=== PATIENT | female | born 1960 | race Caucasian/White ===

== ENCOUNTER 2018-01-29 13:24 | Inpatient (IN) ==
[2018-01-29] MEDS ORDERED: Albuterol 2.5 MG/3 ML NEBULIZER IH ONE (13:44)
[2018-01-29] MEDS ORDERED: CeFAZolin Syr 2,000MG/20 ML 2,000 MG/20 ML SYRINGE IVPB ONE (13:44)
[2018-01-29] MEDS ORDERED: Ringers Solution, Lactated 1,000 ML IVC SCH ×2 (13:45→18:54)
--- NOTE | 2018-01-29 14:25 | Anesthesia Evaluation PreOp ---
Date of Encounter: 01/29/18 Time of Encounter: 14:23 - Past History Planned Operation: R robotic total knee arthroplasty Cardiac History: Denies any Significant Hx Pulmonary History: Denies Any Significant HX SYSTEM SUPPORT ADMINISTRATOR History: Other (anxiety) Other Medical History: Diabetes Type II, Other (BMI 41) Anesthesia History: No Prior Anesthetic Complications, Past Anesthesia ( hysterectomy, franc) Alcohol Use: none Drug use: none Medications and Allergies Amlodipine/Valsartan/Hcthiazid [Exforge Hct 5-160-12.5 mg Tab] 1 each PO DAILY 01/29/18 [History] Atorvastatin Calcium [Lipitor] 10 mg PO DAILY 01/29/18 [History] Diclofenac Sodium [Voltaren] 100 gm TP TID 01/29/18 [History] Levothyroxine Sodium [Levoxyl] 125 mcg PO DAILY 01/29/18 [History] Liraglutide [Victoza 2-Ry] 18 mg SQ DAILY 01/29/18 [History] Losartan Potassium [Cozaar] 50 mg PO DAILY 01/29/18 [History] Metformin HCl [Fortamet] 500 mg PO BID 01/29/18 [History] Omeprazole [PriLOSEC] 10 mg PO DAILY 01/29/18 [History] Tramadol HCl [Ultram] 50 mg PO QID PRN 01/29/18 [History] hydroCHLOROthiazide [Hydrochlorothiazide] 12.5 mg PO DAILY 01/29/18 [History] 3 Allergy/AdvReac Type Severity Reaction Status Date / Time Sulfa (Sulfonamide Allergy Swelling Verified 01/19/18 11:58 Antibiotics) of Lip/Tongue/Throat - Meds/Allergy Pre-op Review Medications Reviewed: Yes Allergies Reviewed: Yes Beta Blockers on Current Med List: No Anesthesia Results - Labs Laboratory Tests 01/19/18 01/19/18 01/19/18 12:10 12:10 12:10 WBC 7.5 Hgb 12.8 Hct 38.4 Plt Count 235 PT 13.1 H INR 1.2 APTT 33.6 Sodium 136 Potassium 3.8 Chloride 101 Carbon Dioxide 29 BUN 13 Creatinine 0.74 Est Mean Plasma Glucose Hemoglobin A1c 01/19/18 12:10 WBC Hgb Hct Plt Count PT INR APTT Sodium Potassium Chloride Carbon Dioxide BUN Creatinine Est Mean Plasma Glucose 140 Hemoglobin A1c 6.5 H Anesthesia Exam O2 Sat Height 1.65 m Height 1.65 m Height 1.65 m Weight 113.398 kg Weight 113.398 kg Weight 113.398 kg O2 Sat by Pulse Oximetry 96 Vital Signs Temp Pulse Resp BP Pulse Ox 99.0 F 81 18 142/71 96 01/29/18 13:43 01/29/18 13:43 01/29/18 13:43 01/29/18 13:43 01/29/18 13:43 Blood glucose: 108 Height: 65" Weight: 243lbs NPO (# of Hours): >8 - HEENT Pupil (Motor): Pupils equal, EOMI Mallampati: III Teeth: Edentulous Oral Opening: Greater than 3 - SYSTEM SUPPORT ADMINISTRATOR LOC: Oriented SYSTEM SUPPORT ADMINISTRATOR Motor: Normal RUE, Normal LUE, Normal RLE, Normal LLE, Normal Face SYSTEM SUPPORT ADMINISTRATOR Sensory: Normal: RUE, LUE, RLE, LLE, Face - Cardiac Rhythm: Regular - Pulmonary Breath Sounds: bilateral Clear Respiratory Effort: Symmetrical Anesthesia Assess/Plan ASA Score: 3 Modified [place] Scale for Level of Consciousness: Cooperative, oriented, and tranquil Anesthetic Plan: General (plan b), Regional (spinal with adductor canal nn block ), MAC Monitoring Plan: Standard Monitors Recovery Plan: PACU
[2018-01-29] MEDS ORDERED: Ondansetron 4 MG/2 ML VIAL ONE ×2 (14:39→15:19)
[2018-01-29] MEDS ORDERED: Acetaminophen IV 1,000 MG/100 ML INFUS..BTL ONE (14:40)
--- NOTE | 2018-01-29 15:10 | History & Physical Report ---
Date of Encounter: 01/29/18 Time of Encounter: 15:10 24 Hour HP Update - Instructions Instructions: If the History and Physical is less than 30 days old and was completed prior to A.M. admission and or procedure and has NOT been updated on calendar day of procedure please complete this update prior to performing procedure. - Update Patient reports changes in Medical Condition: No Changes in examination, assessment, or condition: No Changes in Medication: No Preop tests/diagnostics Reviewed: Yes Surgery Remains Indicated: Yes Consent for Planned Operative Procedure(s) Verified: Yes - Pre-Operative Checklist Preoperative Checklist Indicated: No Prophylactic Antibiotic Ordered: Yes Is VTE Prophylaxis Indicated?: Yes
--- NOTE | 2018-01-29 15:12 | Discharge Summary ---
Date of Encounter: 02/02/18 Time of Encounter: 06:57 - Discharge Diagnosis (1) Type 2 diabetes mellitus Priority: Secondary Status: Chronic Qualifiers: Diabetes mellitus prison insulin use: unspecified family mediator insulin use status Diabetes mellitus complication status: with unspecified complications Qualified Code(s): E11.8 - Type 2 diabetes mellitus with unspecified complications (2) Morbid obesity with BMI of 40.0-44.9, adult Priority: Secondary Status: Chronic (3) Arthritis of right knee Priority: Primary Status: Chronic (4) Status post total right knee replacement Priority: Primary Status: Acute (5) Acute blood loss anemia Priority: Primary Status: Acute - Hospital Course Hospital course: Ms. Murray is a 57 year old female Status post total knee replacement The patient had an uneventful postoperative course. They received antibiotics and physical therapy and were discharged in stable condition. There will follow -up in the office in 2 weeks. - Time Spent with Patient Total time spent providing and/or coordinating discharge services: - Discharge Medications Home Medications: Aspirin Enteric Coated [Aspirin EC] 325 mg PO BID #20 tablet. 01/29/18 [Rx] Diclofenac Sodium [Voltaren] 1 appl TP TID 01/29/18 [History] Levothyroxine Sodium [Levoxyl] 125 mcg PO DAILY 01/29/18 [History] Liraglutide [Victoza 2-Ry] 1.8 mg SQ DAILY 01/29/18 [History] Losartan Potassium [Cozaar] 50 mg PO DAILY 01/29/18 [History] Metformin HCl [Fortamet] 500 mg PO BID 01/29/18 [History] OxyCODONE Immed Rel [Roxicodone 5 MG] 5 mg PO Q4HR PRN 5 Days #20 tablet [Rx] Tramadol HCl [Ultram] 50 mg PO QID PRN 01/29/18 [History] hydroCHLOROthiazide [Hydrochlorothiazide] 12.5 mg PO DAILY 01/29/18 [History] Atorvastatin [Lipitor] 10 mg PO DAILY 01/30/18 [History] Bifidobacterium Infantis [Align] 4 mg PO DAILY 01/30/18 [History] Escitalopram [Lexapro] 10 mg PO DAILY 01/30/18 [History] Omeprazole [PriLOSEC] 40 mg PO DAILY 01/30/18 [History] Tizanidine HCl 4 mg PO DAILY PRN 01/30/18 [History] Allergies/Adverse Reactions: 3 Allergy/AdvReac Type Severity Reaction Status Date / Time Sulfa (Sulfonamide Allergy Swelling Verified 01/19/18 11:58 Antibiotics) of Lip/Tongue/Throat Primary care physician: Stefania Cox MD Labs on day of discharge: Labs from last 24 hours 01/29/18 13:41 POC Glucose 108 H - Patient Status Disposition: Home, Self-Care - Discharge Instructions Follow Up With: Robb Madrid MD [Partnered Physician] - 02/24/18 5:35 pm Tameka Zazueta PAC [Physician Hand Candy Molder] - 02/04/18 8:45 am (Second followup: 02/12/18 @ 10am) Additional Instructions: Discharge Instructions: Total Knee Replacement Please call [facility] ([phone]), your Primary Care Physician, or report to the Emergency Room if you have any of the following symptoms: Nausea, vomiting, fever greater that 101.5, swelling, chest pain, shortness of breath, increased pain/redness/drainage/odor for your incision site, numbness/ tingling, or any other concerning symptoms. ACTIVITY:Weight-bearing as tolerated. You may progress off support (crutches or walker) as tolerated. Incentive Spirometer 10 times an hour. MEDICATIONS: Upon discharge resume your home medications. Take all the medications as prescribed. Take a stool softener if taking narcotic pain medications. Stool softeners are only effective if you drink enough fluids. Drink 6-8 glass of water or fluids a day, unless this is not allowed for another health problem. Despite using stool softeners, if you haven't had a bowel movement in 3 days, please switch to a gentle laxative. Gentle laxatives are sold over the counter. You should have a bowel movement within 24 hours, if not call the office. You will be discharged from the hospital with a prescription for pain medication. You are encouraged to decrease the use of narcotic pain medication as tolerated. Should you require a refill, please call the office. [facility] prescribes narcotic pain medication for only 4-6 weeks after surgery. If you require pain medication beyond this time period, you may be referred to your Primary Care Physician or to the Pain Clinic for further evaluation. Plan ahead for refills on pain medication as many narcotics either need to be picked up at the office or mailed. It is best to call 48-72 hours in advance of needing a prescription refill so you don't run out of medication. To help control the post-operative pain, you may take NSAIDs (Aleve,Advil, Motrin, Ibuprofen, Naprosyn) or Tylenol as prescribed on the bottle in addition to the pain medication. ANTICOAGULATION (blood thinners): Continue your Aspirin, Lovenox or Coumadin as prescribed to help prevent a blood clot in the leg or in the lungs. As long as your incision remains dry and you tolerate the NSAIDs (Aleve, Advil, Motrin, ibuprofen, naprosyn), it is OK to use the NSAIDS while you are taking your anticoagulation medication. Should your incision start to drain, stop the NSAID and contact our office. Common symptoms of blood clot in the legs include: localized pain, swelling, calf tenderness, redness or discoloration of the skin. Blood clot in the lung symptoms include: shortness of breath, rapid pulse, sweating, and chest pain that worsens with deep breathing, coughing up blood, lightheadedness, feelings of anxiety. If you experience any of these symptoms notify your physician immediately, go to the emergency room, or if having trouble breathing, call 911. WOUND CARE: Leave the dressing on for 7 to 10days. You may change the dressing if it becomes saturated greater than 50%. Do not get the dressing wet at anytime. Wash your hands with antibacterial soap, rinse and dry prior to any wound care. If you have patti the visiting nurse or rehab facility can remove the stapes 10-14 days after surgery and place steri-strips across the wound. Leave the steri-strips in place until they fall off on their won. You may let water from the shower run on top of the steri-strips. If you do not have a visiting nurse or rehab facility, you will need to return to the office at 10-14 days for the patti to be removed. If you have itching or redness around the dressing call the office. FOLLOW-UP: Please follow up with your surgeon in the orthopedic clinic in 4 weeks from the day of surgery. If you have patti that need to be removed, you will need to come back to the office in 10-14 days from the day of surgery.
[2018-01-29] MEDS ORDERED: Lidocaine -MPF 2% 2 ML VIAL ONE ×2 (15:19→15:55)
[2018-01-29] MEDS ORDERED: *HR* Midazolam HCl 2 MG/2 ML VIAL ONE (15:19)
[2018-01-29] MEDS ORDERED: *HR* FentaNYL (PF) 100 MCG/2 ML VIAL ONE (15:19)
[2018-01-29] MEDS ORDERED: Morphine Sulfate/PF 5mg/10mL Vial ONE (15:21)
[2018-01-29] MEDS ORDERED: Ethanol\\Acetic Acid\\Na Ace\\Ben 1,000 ML IRRIG.SOLN IR ONE (15:22)
[2018-01-29] MEDS ORDERED: ROPIVACAINE HCL/PF 0.5% 30 ML VIAL ONE (15:44)
[2018-01-29] MEDS ORDERED: Propofol 500 MG/50 ML INFUS..BTL ONE (15:55)
--- NOTE | 2018-01-29 16:01 | Anesthesia Procedures ---
Date of Encounter: 01/29/18 Time of Encounter: 15:40 Procedures: Anesthesia - Epidural/Spinal Patient ID/Chart reviewed: Yes Patient examined: Yes Supplemental Oxygen: Nasal Cannula Supplemental Oxygen Rate (L/min): 2 Sedation: Versed (mg): 2 Sedation: Fentanyl (mcg): 100 Site Prep: 0.5% Chlorhexidine/Alcohol Patient position: upright Local Anesthetic: Lidocaine 1% Amount of Local Anesthetic used: 3 Interspace Used: L3-L4 Blood: No CSF: Yes Paresthesia: No Spinal Needle Gauge: 24 Spinal Dose: 0.5% bupivacaine 3 ml, 150 mcg duramorph Procedure: robotic right total knee - Nerve Block Procedure Date: 01/29/18 Time: 15:55 Checklist: Correct Patient Identifier, Correct procedure, History checked Correct side: Right Blood Thinner: No Monitor Applied: EKG, BP, Pulse Oximetry Supplemental Oxygen via Nasal Cannula (L/min): 2 Indication: Post Op Analgesia Block Type: Other (adductor canal) Catheter placed: No Sterile Technique: Yes Ultrasound used: Yes Anatomy identified: Yes Visual spread of Local: Yes Neuro Stimulation: No Blood on Needle Aspiration: No Smooth Injection of Local: Yes Pain with Injection of Local: No Prep: Chlorhexadine Local: Ropivacaine (0.5% 30 ml) Volume (cc): 30 Number of Attempts: 1 Complications: None/effective block Vitals: O2 Sat Height 1.65 m Height 1.65 m Height 1.65 m Weight 113.398 kg Weight 113.398 kg Weight 113.398 kg O2 Sat by Pulse Oximetry 98 O2 Sat by Pulse Oximetry 99 O2 Sat by Pulse Oximetry 98 O2 Sat by Pulse Oximetry 98 O2 Sat by Pulse Oximetry 94 O2 Sat by Pulse Oximetry 96 Vital Signs Temp Pulse Resp BP Pulse Ox 99.0 F 81 18 142/71 96 01/29/18 13:43 01/29/18 13:43 01/29/18 13:43 01/29/18 13:43 01/29/18 13:43
[2018-01-29] MEDS ORDERED: *HR* Propofol 200 MG/20 ML VIAL IVP ONE (16:20)
[2018-01-29] MEDS ORDERED: Dexamethasone 4 MG/ML VIAL ONE (16:59)
[2018-01-29] MEDS ORDERED: *HR* PHENYLEPHRINE 1,000 MCG/10 ML SYRINGE IVP ONE (17:22)
--- NOTE | 2018-01-29 17:37 | Physician Discharge Referral ---
Home Health/Hosp Referral Info Transfer to: Home Health Attending Provider: Julius - Diagnosis (1) Status post total right knee replacement Priority: Primary Status: Acute (2) Arthritis of right knee Priority: Secondary Status: Chronic (3) Morbid obesity with BMI of 40.0-44.9, adult Priority: Secondary Status: Chronic (4) Type 2 diabetes mellitus Priority: Secondary Status: Chronic - Respiratory Orders Smoking Cessation: Smoking cessation has been advised. For more information, call the [place] Tobacco Quit Line at 6-423-ETZN-NOW. - Diet/Nutrition Diet/Nutrition Orders: Regular - Activity Activity Orders: Up ad betsey, Ambulate, Chair - Services Needed Following services are medically necessary services: Physical Therapy, Occupational Therapy Home Care Orders: Opsite dressing, leave intact until first post-operative visit. If dressing becomes >50% saturated, contact office, remove dressing and place appropriate dressing in its place. Do not allow for dressing to get wet. Zipline/[place] in place, plan to remove at post-operative day #14-16. Total Joint Precautions x 6 weeks Apply cold therapy wrap 3-6x/day for 20 minutes at a time. Encourage ambulation throughout the day Use Incentive spirometer 10x/hour. Elevate affected extremity above heart as tolerated. Brace: Wear knee immobilizer at night x 2 weeks. - Transfer Medications Prescriptions: OxyCODONE Immed Rel [Roxicodone 5 MG] 5 mg PO Q4HR PRN 5 Days #20 tablet PRN Reason: Pain Aspirin Enteric Coated [Aspirin EC] 325 mg PO BID #20 tablet. Home Medications: Amlodipine/Valsartan/Hcthiazid [Exforge Hct 5-160-12.5 mg Tab] 1 each PO DAILY 01/29/18 [History] Aspirin Enteric Coated [Aspirin EC] 325 mg PO BID #20 tablet. 01/29/18 [Rx] Atorvastatin Calcium [Lipitor] 10 mg PO DAILY 01/29/18 [History] Diclofenac Sodium [Voltaren] 100 gm TP TID 01/29/18 [History] Levothyroxine Sodium [Levoxyl] 125 mcg PO DAILY 01/29/18 [History] Liraglutide [Victoza 2-Ry] 18 mg SQ DAILY 01/29/18 [History] Losartan Potassium [Cozaar] 50 mg PO DAILY 01/29/18 [History] Metformin HCl [Fortamet] 500 mg PO BID 01/29/18 [History] Omeprazole [PriLOSEC] 10 mg PO DAILY 01/29/18 [History] OxyCODONE Immed Rel [Roxicodone 5 MG] 5 mg PO Q4HR PRN 5 Days #20 tablet [Rx] Tramadol HCl [Ultram] 50 mg PO QID PRN 01/29/18 [History] hydroCHLOROthiazide [Hydrochlorothiazide] 12.5 mg PO DAILY 01/29/18 [History] Allergies/Adverse Reactions: 3 Allergy/AdvReac Type Severity Reaction Status Date / Time Sulfa (Sulfonamide Allergy Swelling Verified 01/19/18 11:58 Antibiotics) of Lip/Tongue/Throat Certification: Further, I certify that my clinical findings support that this patient is homebound (i.e. absences from home require considerable and taxing effort and are for medical reasons or zoroastrian services or infrequently or short duration when for other reasons) because: Homebound Reason: Post-surgery restriction and or conditions limit ability to leave home Attestation: My signature below is to certify that this patient is under my care and that I, or nurse practitioner, or a physician assistant fitness manager working with me, has a face-to- face encounter with this patient.
--- NOTE | 2018-01-29 17:38 | Physician Discharge Referral ---
ExtendedCare Referral Info Transfer To: [facility] Provider in Charge: Madrid - Diagnosis (1) Status post total right knee replacement Priority: Primary Status: Acute (2) Arthritis of right knee Priority: Secondary Status: Chronic (3) Morbid obesity with BMI of 40.0-44.9, adult Priority: Secondary Status: Chronic (4) Type 2 diabetes mellitus Priority: Secondary Status: Chronic Expected Duration of Placement: <30 days Prognosis: Good Aware of Diagnosis: Patient Aware of Prognosis: Patient - Transfer Medications Prescriptions: OxyCODONE Immed Rel [Roxicodone 5 MG] 5 mg PO Q4HR PRN 5 Days #20 tablet PRN Reason: Pain Aspirin Enteric Coated [Aspirin EC] 325 mg PO BID #20 tablet. Home Medications: Amlodipine/Valsartan/Hcthiazid [Exforge Hct 5-160-12.5 mg Tab] 1 each PO DAILY 01/29/18 [History] Aspirin Enteric Coated [Aspirin EC] 325 mg PO BID #20 tablet. 01/29/18 [Rx] Atorvastatin Calcium [Lipitor] 10 mg PO DAILY 01/29/18 [History] Diclofenac Sodium [Voltaren] 100 gm TP TID 01/29/18 [History] Levothyroxine Sodium [Levoxyl] 125 mcg PO DAILY 01/29/18 [History] Liraglutide [Victoza 2-Ry] 18 mg SQ DAILY 01/29/18 [History] Losartan Potassium [Cozaar] 50 mg PO DAILY 01/29/18 [History] Metformin HCl [Fortamet] 500 mg PO BID 01/29/18 [History] Omeprazole [PriLOSEC] 10 mg PO DAILY 01/29/18 [History] OxyCODONE Immed Rel [Roxicodone 5 MG] 5 mg PO Q4HR PRN 5 Days #20 tablet [Rx] Tramadol HCl [Ultram] 50 mg PO QID PRN 01/29/18 [History] hydroCHLOROthiazide [Hydrochlorothiazide] 12.5 mg PO DAILY 01/29/18 [History] Allergies/Adverse Reactions: 3 Allergy/AdvReac Type Severity Reaction Status Date / Time Sulfa (Sulfonamide Allergy Swelling Verified 01/19/18 11:58 Antibiotics) of Lip/Tongue/Throat - Respiratory Orders Smoking Cessation: Smoking cessation has been advised. For more information, call the [place] Tobacco Quit Line at 5-935-IWLV-NOW. - Ancillary Orders May use pressure relief devices daily prn, May go on MAXIMO w/family/respon alliance party w /meds at nurse discretion PRN, May consult with Dentist, Fisher Dip Net, Room Service Server PRN - Mobility Orders Chair, Ambulate - Rehabiliation Orders Rehab Potential: Good Rehab Orders: Evaluation for Physical Therapy, Evaluation for Occupational Therapy Other: Opsite dressing, leave intact until first post-operative visit. If dressing becomes >50% saturated, contact office, remove dressing and place appropriate dressing in its place. Do not allow for dressing to get wet. Zipline/Robert in place, plan to remove at post-operative day #14-16. Total Joint Precautions x 6 weeks Apply cold therapy wrap 3-6x/day for 20 minutes at a time. Encourage ambulation throughout the day Use Incentive spirometer 10x/hour. Elevate affected extremity above heart as tolerated. Brace: Wear knee immobilizer at night x 2 weeks.~ - Treatments Skin tear care topically daily PRN per policy - Diet Orders Regular CERTIFICATION: I certify that the transfer of the above named patient to an Extended Care Facility is necessary for the continuing treatment of the diagnosis listed. The above information is true and accurate reflection of patient's current condition. Confidential - Redisclosure prohibited without a patient's written consent.
--- NOTE | 2018-01-29 17:41 | Orthopedic Operative Note ---
Date of procedure: 01/29/18 Pre-op diagnosis: Right knee arthritis Post-op diagnosis: same Procedure: Procedure: Right robotic-assisted Total knee replacement Estimated blood loss: 200 cc Hardware: Metal and polyethylene replacement. [place] Femur: 3 Tibia: 3 TS insert: 11 Patella: 36 Exam Under anesthesia: 1 degree hyperextension 5 degree varus as calculated by the robot full flexion and no instability Procedural Notes: Grade 3 arthritic changes all 3 compartments. Operative procedure: The patient was brought to the operating room and placed on the operating room table. After general anesthesia was administered the operative knee was examined. Findings were noted in the exam under anesthesia. The operative extremity was prepped and draped in sterile surgical fashion. The patient received IV antibiotics prior to skin incision. A standard midline incision was made centered over the patella. The incision was made through the skin and subcutaneous tissue. A medial parapatellar tendon approach was performed. Care was taken to preserve tissue along the medial aspect of the patella. And to protect the patella tendon. The deep MCL was released off the medial tibia. The infra patella fat pad was excised. The patella was everted and cut was made at the level of the insertion of the quadriceps and patella tendon. The patella was sized to a 36 the guide was seated and the lug holes are drilled. Knee was brought into flexion. Patient noted to have rate 3 arthritic changes all 3 compartments. Steinmann pins were placed in the tibia and the femur for the tibial and femoral arrays respectively. Checkpoints were also placed in the tibia and the femur for calculation purposes. The knee including the femur and the tibial registered. Osteophytes, ACL and PCL were excised at this point. Extension and flexion were assessed with a valgus stress components were adjusted on the computer to balance the knee. Femoral cuts were made first with robotic assistance, these included the anterior cut posterior cuts chamfer cuts. Tibial cut was then performed with robotic assistance as well. Bone fragments were removed, as well as the medial and lateral meniscus. The size 3 femoral guide was seated box cut was made lug holes are drilled. The size 3 tibial tray was seated and prepared with the fin cutter. Trial reduction with the 11 TS Zee revealed extension of 0 degree and 2 degrees varus full flexion. No varus valgus instability. Trial reduction revealed excellent patella tracking. All trial components were removed all bony surfaces were irrigated. The Tibia was seated followed by the femur, The Zee size 11 was seated and secured patella. Patient had similar findings for motion and stability. The knee was then irrigated out with 2 L of pulse irrigation. The extensor mechanism was closed with #2 FiberWire suture and #2 PDS suture. The subcutaneous tissue was then irrigated and closed deep with #1 PDS suture superficially with 0 PDS suture and skin was closed with patti zip tie The patient was then placed in a sterile dressing and a postoperative brace extubated and transferred to recovery room in stable condition. Anesthesia: spinal Surgeon: Robb Madrid Was there an contact lens assistant present: No Estimated blood loss (cc): 200 Condition: stable Disposition: PACU
[2018-01-29] MEDS ORDERED: *HR* Enoxaparin 30 MG/0.3 ML SYRINGE SQ SCH (18:00)
--- NOTE | 2018-01-29 18:19 | Anesthesia Evaluation Post Op ---
Date of Encounter: 01/29/18 Time of Encounter: 18:19 - Discharge PostOp Status: Transfer Patient to floor (Patient's vital signs have been reviewed. Patient is stable postoperatively and has adequately recovered from anesthesia. Patient is determined to have stable airway patency and respiratory function including respiratory rate and oxygen saturation. Patient has a stable heart rate, blood pressure and adequate hydration. Patients mental status is acceptable. Patients temperature is appropriate. Pain and nausea are adequately controlled.)
[2018-01-29 18:43] LABS: Hematocrit 32.9 % (35.3-44.9); Hemoglobin 10.7 g/dL (11.5-15.4)
[2018-01-29] MEDS ORDERED: Ondansetron 4 MG/2 ML VIAL IVP PRN (18:54)
[2018-01-29] MEDS ORDERED: *HR* Dextrose 50 % in Water (Syg) 50 ML SYRINGE IVP PRN (18:54)
[2018-01-29] MEDS ORDERED: D5% in Water 1,000 ML IVC PRN (18:54)
[2018-01-29] MEDS ORDERED: Dextrose Gel 15 GM/37.5 ML TUBE PO PRN ×2 (18:54)
[2018-01-29] MEDS ORDERED: Naloxone 0.4 MG/ML INJ IVP PRN (18:54)
[2018-01-29] MEDS ORDERED: Sennosides 8.6 MG TABLET PO PRN (18:54)
[2018-01-29] MEDS ORDERED: MOM Conc 10 ML UD.LIQ PO PRN (18:54)
[2018-01-29] MEDS: Insulin LISPRO 300 UNITS/3 ML VIAL SQ SCH ×2 (20:09→20:18)
[2018-01-29] MEDS: *HR* OxyCODONE/APAP 5/325 TABLET PO PRN (20:18)
[2018-01-29] MEDS: traMADol 50 MG TABLET PO PRN (23:40)
[2018-01-30 01:00] LABS: Hematocrit 33.5 % (35.3-44.9); Hemoglobin 10.7 g/dL (11.5-15.4)
[2018-01-30 01:18] LABS: BUN/Creatinine Ratio 18 (6-26); Blood Urea Nitrogen 16 mg/dL (6-20); Calcium 8.7 mg/dL (8.6-10.3); Carbon Dioxide 30 mEq/L (23-29); Chloride 99 mEq/L (98-107); Glucose 180 mg/dL (70-105); Osmolality,Calculated 280 (280-300); Potassium 4.4 mEq/L (3.5-5.1); Sodium 132 mEq/L (136-145); eGFR For Non-African Americans > 60 (> 60)
[2018-01-30] MEDS: *HR* OxyCODONE Immed Rel 5 MG TABLET PO PRN ×5 (02:15→18:34)
[2018-01-30] MEDS: *HR* Enoxaparin 30 MG/0.3 ML SYRINGE SQ SCH ×2 (05:18→16:33)
[2018-01-30] MEDS: Insulin LISPRO 300 UNITS/3 ML VIAL SQ SCH ×4 (07:36→21:56)
[2018-01-30] MEDS: amLODIPine 5 MG TABLET PO SCH (07:37)
[2018-01-30] MEDS: *HR* Metformin 500 MG TABLET PO SCH ×2 (07:37→16:33)
[2018-01-30] MEDS: LIRAGLUTIDE 18 MG SQ SCH (07:38)
[2018-01-30] MEDS: hydroCHLOROthiazide 25 MG TABLET PO SCH (07:38)
[2018-01-30] MEDS ORDERED: AMLODIPINE PO SCH (09:00)
[2018-01-30] MEDS ORDERED: VALSARTAN PO SCH (09:00)
[2018-01-30] MEDS ORDERED: [UNRECOGNIZED DRUG - OTHER] PO SCH (09:00)
[2018-01-30] MEDS ORDERED: HCTHIAZID PO SCH (09:00)
--- NOTE | 2018-01-30 13:15 | Orthopedics Progress Note ---
Date of Encounter: 01/30/18 Time of Encounter: 13:13 Subjective Interval history: No overnight issues. Pain tolerable AFVSS Hg 10.7 RLE: DNVI Dressing clean dry and intact Calves nontender A/P: s/p R TKA Ambulate with PT PO pain control Discharge planning - likely d/c tomorrow Objective Vital signs: Vital Signs Temp Pulse Resp BP Pulse Ox 01/30/18 11:21 98 F 68 16 94/47 94 01/30/18 07:07 98.4 F 76 16 113/65 95 01/30/18 03:23 98.1 F 72 18 143/62 96 01/29/18 23:08 98.9 F 79 18 118/69 95 01/29/18 21:30 98.4 F 76 18 134/74 97 01/29/18 21:00 99.3 F 85 16 133/82 96 01/29/18 20:30 73 17 127/77 97 01/29/18 20:00 98.4 F 70 17 139/73 98 01/29/18 18:18 97.7 F 69 16 118/51 97 01/29/18 18:08 63 16 109/46 97 01/29/18 17:58 71 16 102/44 96 01/29/18 17:48 97.6 F 87 16 98/47 94 01/29/18 16:39 70 15 104/46 98 01/29/18 16:28 75 15 121/55 96 01/29/18 16:23 77 15 98/51 97 01/29/18 16:18 76 15 129/64 99 01/29/18 16:08 74 15 120/56 98 01/29/18 16:04 79 16 119/55 98 01/29/18 16:02 83 15 128/57 99 01/29/18 16:00 79 15 108/77 98 01/29/18 15:56 82 15 127/54 99 01/29/18 15:49 86 15 134/59 98 01/29/18 15:43 94 16 144/71 98 01/29/18 15:34 93 16 144/71 94 01/29/18 13:43 99.0 F 81 18 142/71 96 Intake and Output 01/29/18 01/30/18 01/30/18 23:59 07:59 15:59 Intake Total 20 / 20 100 / 100 Output Total 550 / 550 200 / 200 Balance -530 / -530 -100 / -100 Intake: IV Fluids 20 / 20 100 / 100 Ancef Syringe 2,000 MG/20 ML 2, 20 / 20 000 mg In 20 ml @ 200 mls/hr IVPB PREOP ONE Rx#:[id number] Ancef 2,000 MG In 0.9 % Sodium 100 / 100 Chloride 100 ML @ 200 mls/hr IVPB Q8HR SHIRLEY Rx#:[id number] Output: Urine 350 / 350 200 / 200 Estimated Blood Loss 200 / 200 Other: # Voids 1 Blood Glucose* 134 142 149 - Labs CBC & BMP: 01/30/18 00:50 01/30/18 00:50 Labs: Abnormal lab results Hgb 10.7 g/dL (11.5-15.4) L 01/30/18 00:50 Hct 33.5 % (35.3-44.9) L 01/30/18 00:50 Sodium 132 mEq/L (136-145) L 01/30/18 00:50 Carbon Dioxide 30 mEq/L (23-29) H 01/30/18 00:50 Glucose 180 mg/dL (70-105) H 01/30/18 00:50 POC Glucose 134 mg/dL (70-99) H 01/29/18 19:18 - VTE Documentation of Mechanical Device: Venous foot pump, device Consult Discharge Plan - Plan Referrals: Stefania Cox MD [Primary Care Provider] -
[2018-01-30] MEDS: traMADol 50 MG TABLET PO PRN (16:33)
[2018-01-30] MEDS ORDERED: Ketorolac 30 MG/ML VIAL IVP PRN (20:22)
[2018-01-30] MEDS ORDERED: Acetaminophen IV 1,000 MG/100 ML INFUS..BTL IVPB PRN (20:23)
[2018-01-30] MEDS: Temazepam 15 MG CAPSULE PO PRN (22:00)
[2018-01-31 01:29] LABS: Hematocrit 28.8 % (35.3-44.9); Hemoglobin 9.3 g/dL (11.5-15.4)
[2018-01-31 01:49] LABS: BUN/Creatinine Ratio 27 (6-26); Blood Urea Nitrogen 21 mg/dL (6-20); Calcium 8.7 mg/dL (8.6-10.3); Carbon Dioxide 33 mEq/L (23-29); Chloride 97 mEq/L (98-107); Glucose 152 mg/dL (70-105); Osmolality,Calculated 282 (280-300); Potassium 4.2 mEq/L (3.5-5.1); Sodium 133 mEq/L (136-145); eGFR For Non-African Americans > 60 (> 60)
[2018-01-31] MEDS: *HR* OxyCODONE Immed Rel 5 MG TABLET PO PRN ×4 (02:38→20:50)
[2018-01-31] MEDS: *HR* Enoxaparin 30 MG/0.3 ML SYRINGE SQ SCH ×2 (05:49→17:36)
--- NOTE | 2018-01-31 09:07 | Orthopedics Progress Note ---
Date of Encounter: 01/31/18 Time of Encounter: 09:06 Subjective Interval history: No overnight issues. Pain tolerable AFVSS Hg 9.3 RLE: DNVI Dressing clean dry and intact Calves nontender A/P: s/p R TKA Ambulate with PT PO pain control Discharge planning - d/c today Objective Vital signs: Vital Signs Temp Pulse Resp BP Pulse Ox 01/31/18 07:21 97.5 F L 65 16 115/71 94 01/30/18 23:14 97.9 F 73 16 124/54 93 01/30/18 19:14 98.5 F 66 16 128/55 95 01/30/18 16:46 98.2 F 87 16 130/64 94 01/30/18 11:21 98 F 68 16 94/47 94 Intake and Output 01/30/18 01/31/18 01/31/18 23:59 07:59 15:59 Intake Total 200 / 200 Balance 200 / 200 Intake: Oral 200 / 200 Other: # Voids 1 Blood Glucose* 159 - Labs CBC & BMP: 01/31/18 01:05 01/31/18 01:05 Labs: Abnormal lab results Hgb 9.3 g/dL (11.5-15.4) L 01/31/18 01:05 Hct 28.8 % (35.3-44.9) L 01/31/18 01:05 Sodium 133 mEq/L (136-145) L 01/31/18 01:05 Chloride 97 mEq/L (98-107) L 01/31/18 01:05 Carbon Dioxide 33 mEq/L (23-29) H 01/31/18 01:05 BUN 21 mg/dL (6-20) H 01/31/18 01:05 BUN/Creatinine Ratio 27 (6-26) H 01/31/18 01:05 Glucose 152 mg/dL (70-105) H 01/31/18 01:05 POC Glucose 159 mg/dL (70-99) H 01/30/18 20:21 - VTE Documentation of Mechanical Device: Venous foot pump, device Consult Discharge Plan - Plan Referrals: Stefania Cox MD [Primary Care Provider] -
[2018-01-31] MEDS: hydroCHLOROthiazide 25 MG TABLET PO SCH (09:42)
[2018-01-31] MEDS: LIRAGLUTIDE 18 MG SQ SCH (09:43)
[2018-01-31] MEDS: amLODIPine 5 MG TABLET PO SCH (09:43)
[2018-01-31] MEDS: Insulin LISPRO 300 UNITS/3 ML VIAL SQ SCH ×4 (09:44→20:50)
[2018-01-31] MEDS: *HR* Metformin 500 MG TABLET PO SCH ×2 (09:44→17:36)
[2018-01-31] MEDS: Temazepam 15 MG CAPSULE PO PRN (23:23)
[2018-02-01] MEDS: *HR* Enoxaparin 30 MG/0.3 ML SYRINGE SQ SCH (06:28)
[2018-02-01] MEDS: *HR* OxyCODONE/APAP 5/325 TABLET PO PRN (06:30)
[2018-02-01 07:44] VITALS: BP 138/59
[2018-02-01] MEDS: Insulin LISPRO 300 UNITS/3 ML VIAL SQ SCH (07:51)
[2018-02-01] MEDS: amLODIPine 5 MG TABLET PO SCH (08:56)
[2018-02-01] MEDS: hydroCHLOROthiazide 25 MG TABLET PO SCH (08:56)
[2018-02-01] MEDS: LIRAGLUTIDE 18 MG SQ SCH (08:57)
[2018-02-01] MEDS: *HR* Metformin 500 MG TABLET PO SCH (08:57)
--- NOTE | 2018-02-01 09:23 | Orthopedics Progress Note ---
Date of Encounter: 02/01/18 Time of Encounter: 09:23 Subjective Interval history: No overnight issues. Pain tolerable AFVSS RLE: DNVI Dressing clean dry and intact Calves nontender A/P: s/p R TKA Ambulate with PT PO pain control Discharge planning - d/c today Objective Vital signs: Vital Signs Temp Pulse Resp BP Pulse Ox 02/01/18 07:40 98.3 F 74 17 138/59 96 02/01/18 03:39 98.0 F 78 18 167/64 95 01/31/18 23:13 99.0 F 81 18 139/70 94 01/31/18 19:18 99.0 F 71 18 158/71 95 01/31/18 15:04 98.5 F 65 16 140/73 92 01/31/18 11:22 98.2 F 72 18 116/67 95 Intake and Output 01/31/18 02/01/18 02/01/18 23:59 07:59 15:59 Intake Total 300 / 300 Output Total 300 / 300 Balance -300 / -300 300 / 300 Intake: Oral 300 / 300 Output: Urine 300 / 300 Other: Meal Breakfast Percent of Meal Consumed 70% # Voids 3 2 Blood Glucose* 116 118 - Labs CBC & BMP: 01/31/18 01:05 01/31/18 01:05 Labs: Abnormal lab results Hgb 9.3 g/dL (11.5-15.4) L 01/31/18 01:05 Hct 28.8 % (35.3-44.9) L 01/31/18 01:05 Sodium 133 mEq/L (136-145) L 01/31/18 01:05 Chloride 97 mEq/L (98-107) L 01/31/18 01:05 Carbon Dioxide 33 mEq/L (23-29) H 01/31/18 01:05 BUN 21 mg/dL (6-20) H 01/31/18 01:05 BUN/Creatinine Ratio 27 (6-26) H 01/31/18 01:05 Glucose 152 mg/dL (70-105) H 01/31/18 01:05 POC Glucose 147 mg/dL (70-99) H 01/31/18 16:39 - VTE Documentation of Mechanical Device: Venous foot pump, device Consult Discharge Plan - Plan Additional Instructions: Discharge Instructions: Total Knee Replacement Please call [facility] ([phone]), your Primary Care Physician, or report to the Emergency Room if you have any of the following symptoms: Nausea, vomiting, fever greater that 101.5, swelling, chest pain, shortness of breath, increased pain/redness/drainage/odor for your incision site, numbness/ tingling, or any other concerning symptoms. ACTIVITY:Weight-bearing as tolerated. You may progress off support (crutches or walker) as tolerated. Incentive Spirometer 10 times an hour. MEDICATIONS: Upon discharge resume your home medications. Take all the medications as prescribed. Take a stool softener if taking narcotic pain medications. Stool softeners are only effective if you drink enough fluids. Drink 6-8 glass of water or fluids a day, unless this is not allowed for another health problem. Despite using stool softeners, if you haven't had a bowel movement in 3 days, please switch to a gentle laxative. Gentle laxatives are sold over the counter. You should have a bowel movement within 24 hours, if not call the office. You will be discharged from the hospital with a prescription for pain medication. You are encouraged to decrease the use of narcotic pain medication as tolerated. Should you require a refill, please call the office. [facility] prescribes narcotic pain medication for only 4-6 weeks after surgery. If you require pain medication beyond this time period, you may be referred to your Primary Care Physician or to the Pain Clinic for further evaluation. Plan ahead for refills on pain medication as many narcotics either need to be picked up at the office or mailed. It is best to call 48-72 hours in advance of needing a prescription refill so you don't run out of medication. To help control the post-operative pain, you may take NSAIDs (Aleve,Advil, Motrin, Ibuprofen, Naprosyn) or Tylenol as prescribed on the bottle in addition to the pain medication. ANTICOAGULATION (blood thinners): Continue your Aspirin, Lovenox or Coumadin as prescribed to help prevent a blood clot in the leg or in the lungs. As long as your incision remains dry and you tolerate the NSAIDs (Aleve, Advil, Motrin, ibuprofen, naprosyn), it is OK to use the NSAIDS while you are taking your anticoagulation medication. Should your incision start to drain, stop the NSAID and contact our office. Common symptoms of blood clot in the legs include: localized pain, swelling, calf tenderness, redness or discoloration of the skin. Blood clot in the lung symptoms include: shortness of breath, rapid pulse, sweating, and chest pain that worsens with deep breathing, coughing up blood, lightheadedness, feelings of anxiety. If you experience any of these symptoms notify your physician immediately, go to the emergency room, or if having trouble breathing, call 911. WOUND CARE: Leave the dressing on for 7 to 10days. You may change the dressing if it becomes saturated greater than 50%. Do not get the dressing wet at anytime. Wash your hands with antibacterial soap, rinse and dry prior to any wound care. If you have patti the visiting nurse or rehab facility can remove the stapes 10-14 days after surgery and place steri-strips across the wound. Leave the steri-strips in place until they fall off on their won. You may let water from the shower run on top of the steri-strips. If you do not have a visiting nurse or rehab facility, you will need to return to the office at 10-14 days for the patti to be removed. If you have itching or redness around the dressing call the office. FOLLOW-UP: Please follow up with your surgeon in the orthopedic clinic in 4 weeks from the day of surgery. If you have patti that need to be removed, you will need to come back to the office in 10-14 days from the day of surgery. Referrals: Robb Madrid MD [Partnered Physician] - 02/24/18 5:35 pm Tameka Zazueta PAC [Physician Front Desk] - 02/04/18 8:45 am (Second followup: 02/12/18 @ 10am)
== END 2018-02-01 11:15 | disposition home or self-care (01) | DRG 302 ==
LOC: SAMDAY 13:24 → 3NENU 19:05
PROVIDERS: ADMIT Orthopaedic Surgery; ATTEND Orthopaedic Surgery